=== PATIENT | male | born 1980 | race Caucasian/White ===

== ENCOUNTER 2023-03-22 22:33 | Emergency (ER) | payer OTHER ==
[~2023-03-22] VITALS: Ht 185.4 cm; Wt 93.2 kg
[2023-03-23 02:00] VITALS: BP 125/94; PULSE 63; RESP 15; TEMP 98.5; O2SAT 97
== END 2023-03-23 02:07 ==
LOC: ER 22:33 → EEVIPCON 22:33 → ER 03-23 02:06
DX: S01.81XA Laceration without foreign body of other part of head, initial encounter (principal); Z88.2 Allergy status to sulfonamides; Y04.2XXA Assault by strike against or bumped into by another person, initial encounter; Y93.89 Activity, other specified; Y92.89 Other specified places as the place of occurrence of the external cause; Y99.8 Other external cause status
CPT/HCPCS: 12013; 70450; 70486